=== PATIENT | male | born 1990 ===

== ENCOUNTER 2017-09-20 12:18 | Emergency (ER) | payer OTHER ==
[2017-09-20 12:28] VITALS: BP 133/85; PULSE 94; RESP 16; TEMP 98; O2SAT 98
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
--- NOTE | 2017-09-20 13:16 | RAD ---
PROCEDURE: Right Knee Radiographs. HISTORY: knee pain COMPARISON: None. FINDINGS: BONES: Normal. No fracture. JOINTS: Normal. No osteoarthritis. JOINT EFFUSION: None. OTHER FINDINGS: None. IMPRESSION: Normal radiographs of the right knee.
--- NOTE | 2017-09-20 13:17 | RAD ---
PROCEDURE: Right Ankle Radiographs. HISTORY: ankle injury COMPARISON: None FINDINGS: BONES: Normal. No fracture. JOINTS: Normal. No osteoarthritis. Ankle mortise maintained. Talar dome intact SOFT TISSUES: Normal. OTHER FINDINGS: None. IMPRESSION: Normal right ankle radiographs.
== END 2017-09-20 14:09 | disposition home or self-care (01) ==
LOC: H.ER 12:18
DX: S99.911A Unspecified injury of right ankle, initial encounter (principal); S89.91XA Unspecified injury of right lower leg, initial encounter; W03.XXXA Other fall on same level due to collision with another person, initial encounter; Y93.67 Activity, basketball